=== PATIENT | male | born 1995 | race African-American/Black ===

== ENCOUNTER 2018-11-12 01:26 | Emergency (ER) | payer MEDICAID ==
[~2018-11-12] VITALS: Ht 177.8 cm; Wt 73.0 kg
[2018-11-12] MEDS ORDERED: IBUPROFEN 600MG TABLET PO ONE (05:45)
[2018-11-12] MEDS ORDERED: HYDROCODONE/ACETAMINOPHEN 5/325MG TABLET PO ONE (07:00)
[2018-11-12 07:07] VITALS: BP 119/72
== END 2018-11-12 08:10 | disposition home or self-care (01) ==
LOC: ER 01:26
DX: S92.422A Displaced fracture of distal phalanx of left great toe, initial encounter for closed fracture (principal); W22.8XXA Striking against or struck by other objects, initial encounter; Y93.89 Activity, other specified; Y92.89 Other specified places as the place of occurrence of the external cause
CPT/HCPCS: 29515; 73660; 99283; Z7610